=== PATIENT | female | born 1935 | race Asian ===

== ENCOUNTER 2020-09-21 02:24 | Emergency (ER) | payer MEDICARE, MEDICAID ==
[~2020-09-21] VITALS: Ht 149.9 cm; Wt 54.4 kg
[~2020-09-21 02:24] MED LIST: ACETAMINOPHEN-1 EAC1 ORAL; AZITHROMYCIN500 MG ORAL; COLACE50 MG ORAL; PROAIR HFA8.5 GM INH; ROBITUSSIN100 MG/52 ORAL; ZITHROMAX600 MG ORAL
--- NOTE | 2020-09-21 02:30 | Emergency Room Report ---
History of Present Illness General Chief Complaint: Phlegm Source: Patient, Family Member, EMS Present Illness HPI Disclaimer: Please note that this report is being documented using DRAGON technology. This can lead to erroneous entry secondary to incorrect interpretation by the dictating instrument. HPI: 85-year-old female history of hypertension presents for evaluation of phlegm and anxiety. She arrives by EMS. History obtained through the son as the patient is primarily Syriac speaking. Son reports that the patient had recovered from COVID-19 in July and since then has been having a persistent nonproductive cough and a feeling of phlegm in her chest. This is giving her considerable anxiety. Son states she was prescribed medication for this but she is not taking them. She is also not taking her antihypertensive medication. Son does not know why she is noncompliant with medications. Patient reports feeling that something is stuck in her chest. She is pointing to the sternum. Son reports she has been very anxious and agitated with poor sleep since being diagnosed with COVID-19 2 months ago. No changes in dietary habits. Otherwise no vomiting or diarrhea. No fever or chills. PMH: Hypertension PSH: Reviewed Allergies: Reviewed Social Hx: Reviewed Allergies: Coded Allergies: No Known Allergies (Unverified , 07/09/14) Nursing Documentation-PMH Hx Cardiac Problems: Yes Hx Hypertension: Yes Hx Cancer: No Hx Gastrointestinal Problems: Yes Hx Neurological Problems: Yes Hx Weakness: No - BOTH KNEES ARE WORN OUT PER SON Review of Systems All Other Systems: negative except mentioned in HPI Physical Exam General: Awake and alert, no acute distress HEENT: NC/AT. EOMI. Cardiovascular: RRR. S1 and S2 normal. No murmur appreciated Resp: Normal work of breathing. No cough, wheezing or crackles appreciated Abdomen: Abdomen is soft, nondistended. Nontender Skin: Intact. No abrasions, laceration or rash over the exposed skin MSK: Normal tone and bulk. Moving all extremities. No obvious deformity. Neuro: Awake and alert. Mentating appropriately. Medical Decision Making Diagnostic Impression: Primary Impression: Cough Additional Impressions: Hypertension Hepatic cyst ER Course 85-year-old female history of hypertension brought in by her son for complaints of continued cough after recovering from COVID-19 2 months ago. May be an element of anxiety as well. EKG is nonischemic. Labs obtained which are largely within normal limits. TSH elevated but free thyroid hormones are nearly within normal range. Difficult to visualize the left lower lobe as CT was obtained. No infiltrate seen. CT finds ill-defined dependent lower lobe opacity consistent with atelectasis. Patient with stable vital signs throughout her ED stay. Stable for outpatient follow-up. Discharge home with PMD follow- up. Laboratory Tests Test 09/21/20 02:20 09/21/20 03:00 Urine Color Pale yellow Urine Appearance Clear Urine pH 7 (4.5-8.0) Urine Specific [place] 1.005 (1.005-1.035) Urine Protein Negative (NEGATIVE) Urine Glucose (UA) Negative (NEGATIVE) Urine Ketones Negative (NEGATIVE) Urine Blood Negative (NEGATIVE) Urine Nitrite Negative (NEGATIVE) Urine Bilirubin Negative (NEGATIVE) Urine Urobilinogen Normal MG/DL (0.0-1.0) Urine Leukocyte Esterase Negative (NEGATIVE) White Blood Count 8.3 K/UL (4.8-10.8) Red Blood Count 3.62 M/UL (4.20-5.40) L Hemoglobin 12.0 G/DL (12.0-16.0) Hematocrit 36.5 % (37.0-47.0) L Mean Corpuscular Volume 101 FL (80-99) H Mean Corpuscular Hemoglobin 33.1 PG (27.0-31.0) H Mean Corpuscular Hemoglobin Concent 32.9 G/DL (32.0-36.0) Red Cell Distribution Width 12.0 % (11.6-14.8) Platelet Count 244 K/UL (150-450) Mean Platelet Volume 5.5 FL (6.5-10.1) L Neutrophils (%) (Auto) 61.5 % (45.0-75.0) Lymphocytes (%) (Auto) 27.6 % (20.0-45.0) Monocytes (%) (Auto) 7.5 % (1.0-10.0) Eosinophils (%) (Auto) 2.5 % (0.0-3.0) Basophils (%) (Auto) 1.0 % (0.0-2.0) Sodium Level 141 MMOL/L (136-145) Potassium Level 4.0 MMOL/L (3.5-5.1) Chloride Level 109 MMOL/L (98-107) H Carbon Dioxide Level 26 MMOL/L (21-32) Anion Gap 6 mmol/L (5-15) Blood Urea Nitrogen 10 mg/dL (7-18) Creatinine 0.7 MG/DL (0.55-1.30) Estimated Glomerular Filtration Rate > 60 mL/min (>60) Glucose Level 111 MG/DL (74-106) H Calcium Level 8.2 MG/DL (8.5-10.1) L Total Bilirubin 0.4 MG/DL (0.2-1.0) Aspartate Amino Transferase (AST) 19 U/L (15-37) Alanine Aminotransferase (ALT) 27 U/L (12-78) Alkaline Phosphatase 62 U/L (46-116) Troponin I 0.013 ng/mL (0.000-0.056) Total Protein 6.4 G/DL (6.4-8.2) Albumin 3.0 G/DL (3.4-5.0) L Globulin 3.4 g/dL Albumin/Globulin Ratio 0.9 (1.0-2.7) L Thyroid Stimulating Hormone (TSH) 6.544 uiU/mL (0.358-3.740) Free Thyroxine 1.17 NG/DL (0.76-1.46) Free Triiodothyronine 2.1 pg/mL (2.3-4.2) L EKG Diagnostic Results Troponin ordered: Yes When was troponin ordered?: Sep 21, 2020 EKG Time: 02:41 Rate: normal Rhythm: NSR ST Segments: no acute changes Other Impression Sinus rhythm, normal axis, prolonged QTC of [address] segment changes. Rhythm Strip Diag. Results Rhythm Strip Time: 02:41 EP Interpretation: yes Rate: 70s Rhythm: NSR, no PVC's, no ectopy Chest X-Ray Diagnostic Results Chest X-Ray Diagnostic Results : Chest X-Ray Ordered: Yes # of Views/Limited/Complete: 1 View Indication: Other - Congestion EP Interpretation: Yes Interpretation: no effusion, no pneumothorax, other - Left lower lobe difficult to visualize. Impression: No acute disease Electronically Signed by: Electronically signed by Dr. Rigo Hudson MD CT/MRI/US Diagnostic Results CT/MRI/US Diagnostic Results : Impression Final Report EXAM: CT Chest Without Intravenous Contrast CLINICAL HISTORY: SOB TECHNIQUE: Axial computed tomography images of the chest without intravenous contrast. CTDI is 5.00 mGy and DLP is 133.70 mGy-cm. One or more of the following dose reduction techniques were used: automated exposure control, adjustment of the mA and/or kV according to patient size, use of iterative reconstruction technique. COMPARISON: No relevant imaging studies available. FINDINGS: Axilla, chest wall: No axial lymphadenopathy. No acute chest wall findings. Mediastinum: No mediastinal lymphadenopathy. Great vessels: Thoracic aorta is normal in diameter. Main pulmonary artery is unremarkable. Heart, pericardium: Heart is grossly unremarkable. No pericardial effusion. Minimal calcific density within the aortic and mitral valves. Pleura: No pleural fluid. Lung parenchyma: Ill-defined dependent lower lobe opacities, likely atelectasis. Right upper lobe granuloma. No pulmonary mass. No consolidation. Upper abdomen: Scattered punctate calcifications within the right hepatic lobe. Hypoattenuating structure within the left hepatic lobe, likely a cyst. Remaining visualized solid organs are unremarkable. Bones: No acute skeletal findings. IMPRESSION: 1. No acute findings in the chest. 2. Nonemergent findings as above. Radiologist: Alan Russ MD Electronically Signed: 09/21/20 04:51 Study ready at 04:21 and initial results transmitted at 04:51 Disposition: HOME, SELF-CARE Condition: Stable Scripts Guaifenesin (Guaifenesin) 100 Mg/5 Ml Syrp 200 MG ORAL Q6H, #1 ML 0 Refills Prov: Rigo Hudson MD 09/21/20 Rigo Hudson MD Sep 21, 2020 02:30
--- NOTE | 2020-09-21 02:33 | NUR ---
ED Nurse Note: Pt brought in by EMS with report of anxiety and SOB. Pt is AAO x4.
[2020-09-21 03:16] LABS: EOSINOPHILS % (AUTO) 2.5 % (0.0-3.0); HEMATOCRIT 36.5 % (37.0-47.0); LYMPHOCYTES % (AUTO) 27.6 % (20.0-45.0); MEAN CORPUSCULAR VOLUME 101 FL (80-99); MONOCYTES % (AUTO) 7.5 % (1.0-10.0); NEUTROPHILS % (AUTO) 61.5 % (45.0-75.0); PLATELET COUNT 244 K/UL (150-450); RED BLOOD COUNT 3.62 M/UL (4.20-5.40); WHITE BLOOD COUNT 8.3 K/UL (4.8-10.8)
--- NOTE | 2020-09-21 03:23 | NUR ---
ED Nurse Note: Spoke with pt's son, advised him that we are running tests and don't know any results yet. He gave me cell phone to give to pt. Pt now has cell phone in her possession.
[2020-09-21 03:29] LABS: ANION GAP 6 mmol/L (5-15); BLOOD UREA NITROGEN 10 mg/dL (7-18); CALCIUM 8.2 MG/DL (8.5-10.1); CARBON DIOXIDE 26 MMOL/L (21-32); CHLORIDE 109 MMOL/L (98-107); CREATININE 0.7 MG/DL (0.55-1.30); SODIUM 141 MMOL/L (136-145)
[2020-09-21] MEDS ORDERED: LOSARTAN POTASS50 MG ORAL (03:33)
[2020-09-21 03:44] LABS: ALANINE AMINOTRANSFERASE 27 U/L (12-78); ALBUMIN/GLOBULIN RATIO 0.9 (1.0-2.7); ALKALINE PHOSPHATASE 62 U/L (46-116); ASPARTATE AMINO TRANSFERASE 19 U/L (15-37); BILIRUBIN,TOTAL 0.4 MG/DL (0.2-1.0)
[2020-09-21 03:48] LABS: APPEARANCE,URINE CLEAR; BILIRUBIN, URINE NEGATIVE (NEGATIVE); COLOR,URINE PALE YELLOW; GLUCOSE, URINE (UA) NEGATIVE (NEGATIVE); KETONES,URINE NEGATIVE (NEGATIVE); LEUKOCYTE ESTERASE ,URINE NEGATIVE (NEGATIVE); NITRITE,URINE NEGATIVE (NEGATIVE); PH,URINE 7 (4.5-8.0); PROTEIN,URINE NEGATIVE (NEGATIVE); UROBILINOGEN,URINE NORMAL MG/DL (0.0-1.0)
--- NOTE | 2020-09-21 04:27 | Diagnostic Imaging Report ---
EXAM: XR Chest, 1 View CLINICAL HISTORY: SOB TECHNIQUE: Frontal view of the chest. COMPARISON: No relevant imaging studies available. FINDINGS: Cardiac, mediastinal, and hilar contours are unremarkable. Thoracic aorta atherosclerotic disease is seen. There are bibasilar streaky opacities. No pneumothorax or large pleural effusion. No acute skeletal findings. IMPRESSION: Hypoinflation with probable bibasilar atelectasis.
[2020-09-21 04:48] VITALS: BP 175/74
--- NOTE | 2020-09-21 04:50 | NUR ---
ED Nurse Note: Pt is resting. No needs identified at this time.
--- NOTE | 2020-09-21 04:51 | Diagnostic Imaging Report ---
EXAM: CT Chest Without Intravenous Contrast CLINICAL HISTORY: SOB TECHNIQUE: Axial computed tomography images of the chest without intravenous contrast. CTDI is 5.00 mGy and DLP is 133.70 mGy-cm. One or more of the following dose reduction techniques were used: automated exposure control, adjustment of the mA and/or kV according to patient size, use of iterative reconstruction technique. COMPARISON: No relevant imaging studies available. FINDINGS: Axilla, chest wall: No axial lymphadenopathy. No acute chest wall findings. Mediastinum: No mediastinal lymphadenopathy. Great vessels: Thoracic aorta is normal in diameter. Main pulmonary artery is unremarkable. Heart, pericardium: Heart is grossly unremarkable. No pericardial effusion. Minimal calcific density within the aortic and mitral valves. Pleura: No pleural fluid. Lung parenchyma: Ill-defined dependent lower lobe opacities, likely atelectasis. Right upper lobe granuloma. No pulmonary mass. No consolidation. Upper abdomen: Scattered punctate calcifications within the right hepatic lobe. Hypoattenuating structure within the left hepatic lobe, likely a cyst. Remaining visualized solid organs are unremarkable. Bones: No acute skeletal findings. IMPRESSION: 1. No acute findings in the chest. 2. Nonemergent findings as above.
--- NOTE | 2020-09-21 05:00 | NUR ---
ED Nurse Note: Pt is ready for discharge. Attempted to call Talon Eisenberg (son) [phone]. Pt called x3 numbers from phone, with no answer. Pt is resting in her room at this time. No new needs identified.
[2020-09-21] MEDS ORDERED: ROBITUSSIN100 MG/52 ORAL (05:06)
[2020-09-21 05:58] VITALS: BP 158/70
[2020-09-21 06:48] VITALS: BP 159/74
--- NOTE | 2020-09-21 06:48 | NUR ---
ED Nurse Note: Pt is sleeping, family members have not called back. Pt reponds to verbal command. No new needs identified at this time.
--- NOTE | 2020-09-21 06:51 | NUR ---
ED Nurse Note: Pt's son called her back. I advised him that pt has been cleared for discharge, and he can come pick her up. Son reports he will come get her as soon as possible.
[2020-09-21 08:45] VITALS: BP 156/74
--- NOTE | 2020-09-21 10:12 | NUR ---
ER DISCHARGE NOTE: Patient is cleared to be discharged per ERMD, pt is aox4, on room air, with stable vital signs. pt was given dc and prescription instructions, pt was able to verbalize understanding, pt id band and iv site removed without complications. pt is able to ambulate with steady gait. pt took all belongings. Son at bedside. verbalized understanding of discharge isntructions & followup care.
[2020-09-21 10:13] VITALS: BP 100/64
--- NOTE | 2020-09-21 12:23 | Cardiology Report ---
APPROVED REPORT EKG Measurement Heart [id number] <Conclusion> Normal sinus rhythm Prolonged QT Abnormal ECG
== END 2020-09-21 10:15 | disposition home or self-care (01) ==
LOC: EDBD 02:24 → EMR 02:36
DX: R05 Cough (principal); Z86.16 Personal history of COVID-19; I10 Essential (primary) hypertension; K76.89 Other specified diseases of liver; I11.9 Hypertensive heart disease without heart failure; Z91.14 Patient's other noncompliance with medication regimen; Z79.899 Other long term (current) drug therapy
CPT/HCPCS: 36415; 71045; 71250; 80053; 81003; 84439; 84443; 84481; 84484; 85025; 93005; 99284

== ENCOUNTER 2020-10-15 18:50 | Emergency (ER) | payer MEDICARE, MEDICAID ==
[~2020-10-15] VITALS: Ht 142.2 cm; Wt 54.4 kg
[~2020-10-15 18:50] MED LIST changes: +LOSARTAN POTASS50 MG ORAL
--- NOTE | 2020-10-15 19:20 | NUR ---
pt states ABD pain for 4 days, unable to pass BM for 4 days. pt seen at [facility] yesterday. pt denies vomiting, pt decreased appetite, drinking water. pt PMD [place]. pt hx HTN, allergy to peanuts. Addendum: 10/15/20 at 1923 by REHANA pt states ABD pain for 4 days, unable to pass BM for 4 days. pt seen at [facility] yesterday. pt denies vomiting, pt decreased appetite, drinking water. pt PMD [place]. pt hx HTN, allergy to peanuts. pt hx COVID + 3 months ago, now vaccinated.
[2020-10-15 19:24] VITALS: BP 162/67
--- NOTE | 2020-10-15 20:10 | Emergency Room Report ---
History of Present Illness General Chief Complaint: Abdominal Pain Source: Patient, Family Member - Son (Shana Angel) Present Illness HPI 85 YO female presents to the ED c/o 03/18 in severity constant cramping abdominal pain and fullness with in ability to have a BM x 5 days. Per pt. son, she was seen yesterday at [facility] where she had blood work and xray done and was ultimately DC'd without rx's. Pt. reports decreased appetite and oral intake. Patient is only able to drink water. Pt. denies vomiting. had 1 BM 4 days ago, and prior to that BM also went approx 5 days without having a BM. Denies blood in the stool or black stool. Son reports pt. has hemorrhoids. Denies fevers or chills. Denies cough, SOB, CP or palpitations. Denies dysuria, hematuria, urinary frequency or urgency. Pt. had COVID and recovered 3 mos ago. 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 Does not know name of the medication. (Shana Angel) Allergies: Coded Allergies: No Known Allergies (Unverified , 10/15/20) COVID-19 Screening Contact w/high risk pt: No Experienced COVID-19 symptoms?: No COVID-19 Testing performed CLINICAL REVIEW NURSE: No (Shana Angel) Patient History Limited by: language barrier Past Medical History: see triage record Past Surgical History: none Pertinent Family History: none Now: No Reviewed Nursing Documentation: PMH: Agreed; PSxH: Agreed (Shana Angel) Nursing Documentation-PMH Past Medical History: No History, Except For Hx Cardiac Problems: No Hx Hypertension: Yes Hx Pacemaker: No Hx Asthma: No Hx COPD: No Hx Diabetes: No Hx Cancer: No Hx Gastrointestinal Problems: No Hx Dialysis: No History Of Psychiatric Problem: No Hx Neurological Problems: No Hx Cerebrovascular Accident: No Hx Seizures: No Hx Weakness: No - BOTH KNEES ARE WORN OUT PER SON (Shana Angel) Review of Systems All Other Systems: negative except mentioned in HPI (Shana Angel) Physical Exam Vital Signs Date Time Temp Pulse Resp B/P (MAP) Pulse Ox O2 Delivery O2 Flow Rate FiO2 10/15/20 19:15 98.8 99 20 162/67 (98) 97 Room Air Sp02 EP Interpretation: reviewed, normal General Appearance: no apparent distress, alert, GCS 15, non-toxic Head: normocephalic, atraumatic Eyes: bilateral eye normal inspection, bilateral eye PERRL ENT: hearing grossly normal, normal voice Neck: full range of motion Respiratory: chest non-tender, lungs clear, normal breath sounds, no respiratory distress, no accessory muscle use, no wheezing, speaking full sentences Cardiovascular #1: regular rate, rhythm, no edema, normal capillary refill Gastrointestinal: soft, no guarding, no hernia, other - Diffuse moderately tender abdomen on exam, no ascites, No palpable pulsatile abdominal mass, mildly distended, soft, hyperactive BS in all 4 quadrants. Rectal: deferred Genitourinary: normal inspection, no CVA tenderness Musculoskeletal: normal range of motion, gait/station normal, non-tender Neurologic: alert, motor strength/tone normal, oriented x3, sensory intact, responsive, speech normal Psychiatric: judgement/insight normal Skin: no rash, normal color (Shana Angel) Medical Decision Making PA Attestation Dr. Baker is my supervising Physician whom patient management has been discussed with. (Shana Angel) Diagnostic Impression: Primary Impression: Abdominal pain Qualified Codes: R10.84 - Generalized abdominal pain Additional Impressions: Constipation HTN (hypertension) Anxiety Hepatic cyst Hemorrhoid Atelectasis ER Course 85 YO female presents to the ED c/o 03/18 in severity constant cramping abdominal pain and fullness with in ability to have a BM x 5 days. Per pt. son, she was seen yesterday at [facility]. where she had blood work and xray done and was ultimately DC'd without rx's. Pt. reports decreased appetite and oral intake. Patient is only able to drink water. Pt. denies vomiting. had 1 BM 4 days ago, and prior to that BM also went approx 5 days without having a BM. Denies blood in the stool or black stool. Son reports pt. has hemorrhoid. Denies fevers or chills. Denies cough, SOB, CP or palpitations. Denies dysuria, hematuria, urinary frequency or urgency. Pt. had COVID and recovered 3 mos ago. Hx of HTN and is taking medication for that. Does not know name of the medication. Ddx: considered but are not limited to ND, Obstruction,AAA, PNA, Diverticulitis, acute appendicitis, diarrhea, PUD, GE, pancreatitis, gallstone, ovarian torsion, UTI just to name a few. Vital signs: are WNL, pt. is afebrile. H&PE are most consistent with: Diffuse moderately tender abdomen on exam, no ascites, No palpable pulsatile abdominal mass, mildly distended, soft, hyperactive BS in all 4 quadrants. Pt. is non-toxic in appearance. She is NAD, resting comfortably, showing pain/discomfort only on examination. ORDERS: -CBC: WBC's- 15.1 -CMP: - LIPASE: -UA: Most indicative of contamination: presence of equal amounts of bacteria and squamous cells, no elevation in inflammatory markers, nitrite negative. -Troponin: -BNP: ED INTERVENTIONS: - DISPOSITION: Signed out to attending physician pending remaining Labs and CT imaging results. Labs Test 10/15/20 19:17 10/15/20 19:19 10/15/20 20:16 White Blood Count 15.1 K/UL (4.8-10.8) Red Blood Count 3.68 M/UL (4.20-5.40) Hemoglobin 12.7 G/DL (12.0-16.0) Hematocrit 36.2 % (37.0-47.0) Mean Corpuscular Volume 98 FL (80-99) Mean Corpuscular Hemoglobin 34.4 PG (27.0-31.0) Mean Corpuscular Hemoglobin Concent 34.9 G/DL (32.0-36.0) Red Cell Distribution Width 12.7 % (11.6-14.8) Platelet Count 263 K/UL (150-450) Mean Platelet Volume 5.2 FL (6.5-10.1) Neutrophils (%) (Auto) 79.5 % (45.0-75.0) Lymphocytes (%) (Auto) 9.3 % (20.0-45.0) Monocytes (%) (Auto) 9.5 % (1.0-10.0) Eosinophils (%) (Auto) 0.7 % (0.0-3.0) Basophils (%) (Auto) 0.9 % (0.0-2.0) Urine Color Pale yellow Urine Appearance Clear Urine pH 5 (4.5-8.0) Urine Specific [place] 1.010 (1.005-1.035) Urine Protein Negative (NEGATIVE) Urine Glucose (UA) Negative (NEGATIVE) Urine Ketones Negative (NEGATIVE) Urine Blood 2+ (NEGATIVE) Urine Nitrite Negative (NEGATIVE) Urine Bilirubin Negative (NEGATIVE) Urine Urobilinogen Normal MG/DL (0.0-1.0) Urine Leukocyte Esterase Negative (NEGATIVE) Urine RBC 0-2 /HPF (0 - 2) Urine WBC 0 /HPF (0 - 2) Urine Squamous Epithelial Cells Occasional /LPF Urine Bacteria Occasional /HPF (NONE) (Shana Angel) ER Course 85-year-old female with past medical history of hypertension, hepatic cyst, OA, anxiety presents with constipation. Abdominal examination is nontender and nonperitoneal. Labs are grossly unremarkable except for non specific leukocytosis of 15. No left shift/bandemia. CMP negative for acidosis. Troponin, lipase, UA were within normal limits. EKG is nonischemic. Chest X-Ray is within normal limits. Patient was given CT abdomen pelvis and reported feeling better after drinking oral contrast because she had a bowel movement. CT results showed no acute abnormalities. No colitis. Incidental finding of hepatic cyst. Appendix was not visualized. Patient was recently here in mid September for complaint of cough. CT chest demonstrated left lower lobe atelectasis. No antibiotics were given at that time. The patient denies any bloody stool and has no pain out of proportion to exam, and no significant risk factors for mesenteric ischemia such as atrial fibrillation or severe PAD/PVD (peripheral arterial / vascular disease), thus definitive workup to rule out mesenteric ischemia was not pursued. Patient is afebrile, without any significant tenderness in the RUQ, and a negative [place] sign. The patients presentation does not appear to be consistent with acute cholecystitis and thus definitive imaging to rule it out was not pursued. Doubt AAA or dissection. The patients symptoms are not consistent with ACS (acute coronary syndrome), symptoms are not exertional, EKG without obvious ischemic change. The patients symptoms significantly improved, exam upon discharge revealed a benign abdomen without any surgical or peritoneal signs , and tolerating oral fluids. The patient appears stable for discharge with abdominal_recheck_in_24_hours, and understand to return to the ED immediately if symptoms change or worsen. I spoke with patient's son who states that he will make an appointment with primary care doctor for repeat abdominal examination within 24 hours. He understands that if he is not able to be reevaluated, to come back to the emergency department. Doubt appendicitis at this time, however cannot definitively rule it out as appendix is not visualized on CT scan. Will discharge with Cipro and Flagyl for now. She received abx in ED. Son was advised to set up PMD referral to GI for outpatient colonoscopy within the next 6 to 8 weeks. (Stephanie Baker D.O.) EKG Diagnostic Results Troponin ordered: Yes When was troponin ordered?: Oct 15, 2020 EKG Time: 19:13 Rate: normal - 96 bpm Rhythm: NSR Other Impression Prolonged QTc 492 (Shana Angel) Rhythm Strip Diag. Results Rhythm Strip Time: 21:04 EP Interpretation: yes Rate: 90 Rhythm: NSR, no PVC's, no ectopy (Stephanie Baker D.O.) Chest X-Ray Diagnostic Results Chest X-Ray Diagnostic Results : PA Scribe Text Chest X-Ray: Views: 1 view(s) Indication: Abd Pain Findings: LLL ATX, no effusion. Calcified aortic valve, CM Impression: LLL ATX, no effusion. Calcified aortic valve, CM The X-ray(s) were independently viewed and interpreted contemporaneously Electronically signed by Stephanie lopez DO (Stephanie Baker D.O.) CT/MRI/US Diagnostic Results CT/MRI/US Diagnostic Results : Imaging Test Ordered: CT abdomen and Pelvis W. IV and Oral Contrast. Impression Pending at time of sign out. (Shana Angel) CT/MRI/US Diagnostic Results : Impression Final Report EXAM: CT Abdomen and Pelvis With Intravenous Contrast FINDINGS: Lung bases: Mild basilar atelectasis/pneumonitis. Heart: Cardiomegaly. ABDOMEN: Liver: Small low-attenuation foci in the liver. Gallbladder and bile ducts: No calcified stones. No ductal dilation. Pancreas: Unremarkable. Spleen: Unremarkable. Adrenals: Unremarkable. Kidneys and ureters: Unremarkable. No hydronephrosis. Stomach and bowel: No nura mural thickening. Nonobstructive bowel gas pattern. PELVIS: Appendix: Appendix not identified. Bladder: Unremarkable. Reproductive: Unremarkable. ABDOMEN and PELVIS: Intraperitoneal space: Unremarkable. Bones/joints: Partially visualized fixation hardware in the left femur. Vertebroplasty. Soft tissues: Unremarkable. Vasculature: Unremarkable. No abdominal aortic aneurysm. Lymph nodes: No enlarged lymph nodes. IMPRESSION: Appendix not identified. No colitis. Radiologist: Monet Montenegro M.D (Stephanie Baker D.O.) Last Vital Signs Date Time Temp Pulse Resp B/P (MAP) Pulse Ox O2 Delivery O2 Flow Rate FiO2 10/15/20 19:15 98.8 99 20 162/67 (98) 97 Room Air (Shana Angel) Reevaluation Time: 21:38 Status: improved (Stephanie Baker D.O.) Disposition: HOME, SELF-CARE Admit Decision Time: 22:00 (Stephanie Baker D.O.) Condition: Stable Signed Out To: Dr. Baker (Shana Angel) Scripts Metronidazole* (FLAGYL*) 500 Mg Tablet 500 MG ORAL BID for 10 Days, #20 TAB Prov: Stephanie Baker D.O. 10/15/20 Ciprofloxacin Hcl* (CIPROFLOXACIN HCL*) 500 Mg Tablet 500 MG ORAL Q12H, #20 TAB 0 Refills Prov: Stephanie Baker D.O. 10/15/20 Ondansetron Odt* (ZOFRAN ODT*) 4 Mg Tab.rapdis 4 MG BC EVERY 6 HOURS PRN for Nausea & Vomiting, #10 TAB 0 Refills Prov: Stephanie Baker D.O. 10/15/20 Simethicone (SIMETHICONE) 180 Mg Capsule 180 MG PO DAILY for bloating for 14 Days, #14 CAP Prov: Stephanie Baker D.O. 10/15/20 Docusate Sodium (DULCOLAX STOOL SOFTENER) 100 Mg Capsule 100 MG PO BID for constipation for 10 Days, #20 CAP Prov: Stephanie Baker.O. 10/15/20 Referrals: NON PHYSICIAN (PCP) Patient Instructions: Abdominal Pain, Adult, Constipation, Adult, [id number] Additional Instructions: Instructions for patient/underwater roboticist: Follow up with your physician in 1-2 days. Drink plenty of fluids. Eat lots of fiber. Take all of your home medications as prescribed Follow-up with your doctor sooner if your condition requires a more timely clinical reevaluation. Return to the emergency department immediately if you feel that your condition is worsening or if you have any new or concerning symptoms. Review your discharge instructions and take any prescriptions given as instructed. You were found to have an abnormality on your imaging (liver cyst) which will need to be reimaged in approximately 3 months. Cancer or malignancy is one of the possibilities so it needs to be monitored to ensure that it is not changing. It is important that you see a primary doctor to be referred for this imaging. Failure to do so could lead to undetected worsening cancer or illness. [facility] PROVIDES FREE OR LOW-COST HEALTH SERVICES TO PEOPLE WHO CAN SHOW PROOF THAT THEY LIVE IN [facility]. TO FIND MORE CLINICS PARTNERED WITH THE [facility] TO PROVIDE SERVICE, PLEASE CALL . Shana Angel Oct 15, 2020 20:10 Stephanie Baker D.O. Oct 15, 2020 21:10
[2020-10-15 20:25] LABS: BASOPHILS % (AUTO) 0.9 % (0.0-2.0); EOSINOPHILS % (AUTO) 0.7 % (0.0-3.0); HEMATOCRIT 36.2 % (37.0-47.0); HEMOGLOBIN 12.7 G/DL (12.0-16.0); LYMPHOCYTES % (AUTO) 9.3 % (20.0-45.0); MEAN CORPUSCULAR VOLUME 98 FL (80-99); MONOCYTES % (AUTO) 9.5 % (1.0-10.0); NEUTROPHILS % (AUTO) 79.5 % (45.0-75.0); PLATELET COUNT 263 K/UL (150-450); RED BLOOD COUNT 3.68 M/UL (4.20-5.40); RED CELL DISTRIBUTION WIDTH 12.7 % (11.6-14.8); WHITE BLOOD COUNT 15.1 K/UL (4.8-10.8)
[2020-10-15 20:25] LABS: APPEARANCE,URINE CLEAR; BILIRUBIN, URINE NEGATIVE (NEGATIVE); COLOR,URINE PALE YELLOW; GLUCOSE, URINE (UA) NEGATIVE (NEGATIVE); KETONES,URINE NEGATIVE (NEGATIVE); LEUKOCYTE ESTERASE ,URINE NEGATIVE (NEGATIVE); NITRITE,URINE NEGATIVE (NEGATIVE); PH,URINE 5 (4.5-8.0); PROTEIN,URINE NEGATIVE (NEGATIVE); UROBILINOGEN,URINE NORMAL MG/DL (0.0-1.0)
[2020-10-15 20:32] LABS: ANION GAP 11 mmol/L (5-15); BLOOD UREA NITROGEN 11 mg/dL (7-18); CALCIUM 9.1 MG/DL (8.5-10.1); CARBON DIOXIDE 25 MMOL/L (21-32); CHLORIDE 105 MMOL/L (98-107); CREATININE 0.8 MG/DL (0.55-1.30); POTASSIUM 3.8 MMOL/L (3.5-5.1); SODIUM 141 MMOL/L (136-145)
[2020-10-15 20:36] LABS: ALANINE AMINOTRANSFERASE 30 U/L (12-78); ALBUMIN 3.8 G/DL (3.4-5.0); ALBUMIN/GLOBULIN RATIO 1.3 (1.0-2.7); ALKALINE PHOSPHATASE 71 U/L (46-116); ASPARTATE AMINO TRANSFERASE 21 U/L (15-37); BILIRUBIN,TOTAL 0.5 MG/DL (0.2-1.0)
[2020-10-15] MEDS ORDERED: cefTRIAXone 1 GM in NS 55 ML IVPB ONE (21:00)
[2020-10-15] MEDS ORDERED: ONDANSETRON ODT4 MG BC (21:06)
[2020-10-15] MEDS ORDERED: SIMETHICONE180 MG PO (21:06)
[2020-10-15] MEDS ORDERED: DULCOLAX STOOL100 M1 PO (21:06)
[2020-10-15] MEDS ORDERED: metroNIDAZOLE 500mg tab ORAL ONE (21:30)
--- NOTE | 2020-10-15 21:33 | Diagnostic Imaging Report ---
EXAM: CT Abdomen and Pelvis With Intravenous Contrast CLINICAL HISTORY: PAIN TECHNIQUE: Axial computed tomography images of the abdomen and pelvis with intravenous contrast. CTDI is 5.1 mGy and DLP is 264.5 mGy-cm. One or more of the following dose reduction techniques were used: automated exposure control, adjustment of the mA and/or kV according to patient size, use of iterative reconstruction technique. COMPARISON: No relevant prior studies available. FINDINGS: Lung bases: Mild basilar atelectasis/pneumonitis. Heart: Cardiomegaly. ABDOMEN: Liver: Small low-attenuation foci in the liver. Gallbladder and bile ducts: No calcified stones. No ductal dilation. Pancreas: Unremarkable. Spleen: Unremarkable. Adrenals: Unremarkable. Kidneys and ureters: Unremarkable. No hydronephrosis. Stomach and bowel: No nura mural thickening. Nonobstructive bowel gas pattern. PELVIS: Appendix: Appendix not identified. Bladder: Unremarkable. Reproductive: Unremarkable. ABDOMEN and PELVIS: Intraperitoneal space: Unremarkable. Bones/joints: Partially visualized fixation hardware in the left femur. Vertebroplasty. Soft tissues: Unremarkable. Vasculature: Unremarkable. No abdominal aortic aneurysm. Lymph nodes: No enlarged lymph nodes. IMPRESSION: Appendix not identified. No colitis.
[2020-10-15] MEDS ORDERED: METRONIDAZOLE500 MG ORAL (21:50)
[2020-10-15] MEDS ORDERED: CIPROFLOXACIN500 M2 ORAL (21:50)
[2020-10-15 22:13] VITALS: BP 127/77
--- NOTE | 2020-10-16 12:34 | Diagnostic Imaging Report ---
Indication: Chest pain Technique: XRAY Chest 1v Comparison: 09/21/2019 Findings: Heart is enlarged but stable in size compared to prior exam. There is mild bibasilar dependent atelectasis. No dense consolidation. No pleural effusion or pneumothorax. Bones are demineralized and there are degenerative changes in the spine. Bone cement is noted suggesting prior kyphoplasty. IMPRESSION: Mild bibasilar atelectasis. Stable cardiomegaly.
[2020-10-17] MEDS ORDERED: CEPHALEXIN500 MG ORAL (18:47)
[2020-10-17] MEDS ORDERED: COLACE100 MG ORAL (18:47)
== END 2020-10-15 22:13 | disposition home or self-care (01) ==
LOC: EMR 19:16
DX: R10.84 Generalized abdominal pain (principal); K59.00 Constipation, unspecified; I10 Essential (primary) hypertension; F41.9 Anxiety disorder, unspecified; K76.89 Other specified diseases of liver; K64.9 Unspecified hemorrhoids; J98.11 Atelectasis; D72.829 Elevated white blood cell count, unspecified; I51.7 Cardiomegaly
CPT/HCPCS: 36415; 71045; 74177; 80053; 81003; 83690; 83880; 84484; 85025; 93005; 96365; 99284; J0696; Q9965